=== PATIENT | male | born 1975 | race Caucasian/White ===

== ENCOUNTER 2020-06-03 22:44 | Emergency (ER) | payer MEDICAID ==
[~2020-06-03] VITALS: Ht 172.7 cm; Wt 86.0 kg
[2020-06-03 22:52] VITALS: BP 138/90
--- NOTE | 2020-06-03 22:54 | NUR ---
44Y M BIB EMS FOR ETOH/ SI. PT STS HE DRANK 5 32OZ BEERS PRIOR TO COMING IN TONIGHT BUT STS HE HAS BEEN FEELING MORE DEPRESSED AND DRINKING MORE WITH "COVID THINGS" PT CHANGING INTO GOWN. BELONGINGS PLACED IN LOCKER. PA AT BEDSIDE TO ASSESS
--- NOTE | 2020-06-03 23:09 | NUR ---
ALL BELONGINGS PLACED IN LOCKER AND LABELED. ONE LARGE ROLLING BAG, BACK PACK AND WHITE BELONGINGS BAG.
[2020-06-03 23:29] LABS: ALANINE AMINOTRANSFERASE 49 U/L (12-78); ALBUMIN 3.9 g/dL (3.4-5.0); ANION GAP 10 mmol/L (5-15); CALCIUM 8.3 mg/dL (8.5-10.1); CHLORIDE 111 mmol/L (98-107); SALICYLATE LEVEL 4.6 mg/dL (2.8-20.0)
[2020-06-03 23:33] LABS: BASOPHILS % (AUTO) 1 % (0-1); EOSINOPHILS % (AUTO) 2 % (1-7); LYMPHOCYTES % (AUTO) 40 % (22-44); MEAN CORPUSCULAR HEMOGLOBIN 31.8 pg (27.5-34.5); MEAN CORPUSCULAR HGB CONC 34.7 g/dL (33.2-36.2); MEAN PLATELET VOLUME 10.4 fL (7.4-10.4); MONOCYTES % (AUTO) 7 % (2-9); NEUTROPHILS % (AUTO) 50 % (42-75); PLATELET COUNT 194 x10^3/uL (130-400); RED BLOOD COUNT 5.09 x10^6/uL (4.38-5.82); RED CELL DISTRIBUTION WIDTH 14.2 % (9.4-14.8)
[2020-06-03 23:39] LABS: ALKALINE PHOSPHATASE 96 U/L (45-117); BILIRUBIN,TOTAL 0.1 mg/dL (0.2-1.0); TOTAL PROTEIN 7.8 g/dL (6.4-8.2)
--- NOTE | 2020-06-03 23:45 | NUR ---
PT RESTING ON GURNEY LIGHTS DIMMED AND TV ON FOR COMFORT. NO NEEDS AT THIS TIME.
[2020-06-03 23:49] LABS: MD NO
--- NOTE | 2020-06-04 00:12 | NUR ---
PT REMINDED OF NEED FOR URINE SAMPLE UNABLE TO GO AT THIS TIME, URINAL AT BEDSIDE.
--- NOTE | 2020-06-04 01:00 | NUR ---
PROVIDER AT BEDSIDE FOR RECHECK. PER DR KNIGHT/ JOSUE BURGESS PT TO BE D/C WHEN MORE SOBER.
--- NOTE | 2020-06-04 01:23 | NUR ---
Covering primary for break, pt sleeping RR equal and unlabored. POC: MTF.
--- NOTE | 2020-06-04 02:19 | NUR ---
RN TO BEDSIDE TO RE-ASSESS PATIENT'S SOBRIETY AND STATUS FOR PENDING DC ON MTF. PATIENT AROUSABLE TO VOICE. I ASKED PATIENT IF HE THINKS HE FEELS OK TO GET DISCHARGED AND HE RESPONDS "WHY?". I ASKED WHAT HE MEANT BY THIS ANSWER AND HE REPEATED "WHY?" MULTIPLE TIMES WITHOUT ANY FURTHER EXPLANATION. RN ASKED AGAIN IF WE COULD GET HIM HOME OR AT LEAST OUT OF THE HOSPITAL BECAUSE HE CAME IN INTOXICATED. PATIENT RESPONDS IN AN AGITATED STATE "IM STILL FUC SUICIDAL" AND REPEATED THIS WITHOUT INTERRUPTION FROM ME. I ASKED PATIENT IF HE HAD A PLAN AND PATIENT RESPONDED "YOU FUC TELL ME" WITH INTENSE EYE CONTACT AND REPEATED THIS 3-4 TIMES WITH AGGRESSION IN HIS VOICE. I THEN REASSURED PATIENT WE WERE HERE TO HELP HIM AND WHAT WAS MAKING HIM FEEL THIS WAY, IF HE WAS SEEING A PSYCHIATRIST OR COUNSELOR AND PATIENT STOPPED RESPONDING TO QUESTIONS WITH CLOSING HIS EYES. JOSUE BURGESS NOTIFIED OF THIS INTERACTION AND JOSUE BURGESS TO BEDSIDE WELL ORIGINAL PRIMARY RN. BOTH TO BEDSIDE AND PATIENT REFUSED TO RESPOND TO QUESTIONS. JOSUE BURGESS AND ORIGINAL PRIMARY RN, ROMAIN, BOTH ASSESSED PATIENT WHILE I WAS AT LUNCH BREAK AND PATIENT DENIED SI AT THAT TIME PER THEIR REPORT. SECURITY CALLED, PATIENT'S PERSONAL BELONGINGS GIVEN TO PATIENT AND INSTRUCTED TO GET DRESSED. SECURITY TO ROOM AND PATIENT BECAME AGITATED, YELLING AND BELITTLING SECURITY OFFICERS. PATIENT ESCORTED OUTSIDE WITH SECURITY AND ALL PERSONAL BELONGINGS IN TOW. DC INSTRUCTIONS GIVEN TO PATIENT ON WAY OUT. STEADY GAIT ON DISCHARGE. Addendum: 06/04/20 at 0230 by ADOUGHTY WHEN SECURITY ARRIVED AT PATIENT'S ROOM, SECURITY INSTRUCTED PATIENT THAT HE WAS TO GET DRESSED AND EXIT HOSPITAL. PATIENT STATED "JUST FUC BRING ME TO GROUP HOME THEN".
== END 2020-06-04 02:30 | disposition home or self-care (01) ==
LOC: ED 06-04 02:18
DX: F10.220 Alcohol dependence with intoxication, uncomplicated (principal); F11.10 Opioid abuse, uncomplicated; Z72.9 Problem related to lifestyle, unspecified; Z59.0 Homelessness; Y90.9 Presence of alcohol in blood, level not specified
CPT/HCPCS: 36415; 80053; 80299; 80320; 80329; 84443; 85025; 99283; G0480